=== PATIENT | female | born 1955 | race Caucasian/White ===

== ENCOUNTER 2016-08-23 11:09 | Emergency (ER) | payer BC ==
[2016-08-23] MEDS ORDERED: Diph,Pert(Acell),Tet Vac 0.5 ML SYR IM ONE (11:22)
--- NOTE | 2016-08-23 11:25 | Emergency Department Record ---
History of Present Illness - General Chief Complaint: Laceration(s) Stated Complaint: lac on r index finger Time Seen by Provider: 08/23/16 11:21 Source: Patient - History of Present Illness Initial Commments: Lac to RIF at proximal phalanx dorsal side just prior to arrival. Not UTD with tetanus. Extremity Location: Right: Hand Image Hand: 1 - 1 cm lac to dorasl RIF mid shaft of proximal phalanx. ROM intact, Full tendon function intact. Place: Home - Related Data Home Medications Medication Instructions Recorded Confirmed Last Taken Acetaminophen/Diphenhydramine 1 each PO QHS 08/23/16 08/23/16 1 Day Ago [Tylenol Pm Ex-Strength Caplet] ~08/22/16 Albuterol Sulfate [Proair Hfa] 1 - 2 puff IH .EVERY 4-6 HOURS PRN 08/23/1608/23 1 Day Ago ~08/22/16 Budesonide/Formoterol Fumarate 10.2 gm IH DAILY 08/23/16 08/23/16 1 Day Ago [Symbicort 160-4.5 Mcg Inhaler] ~08/22/16 Dextrin [Fiber] 350 gm PO DAILY 08/23/16 08/23/16 1 Day Ago ~08/22/16 Fluoxetine HCl [Prozac] 40 mg PO DAILY 08/23/16 08/23/16 1 Day Ago ~08/22/16 Fluticasone/Salmeterol [Advair 1 each IH BID 08/23/16 08/23/16 1 Day Ago 250-50 Diskus] ~08/22/16 Multivit with Calcium,Iron,Min 1 each PO DAILY 08/23/16 08/23/16 1 Day Ago [Multiple Vitamins For Women] ~08/22/16 Omeprazole [Prilosec] 20 mg PO DAILY 08/23/16 08/23/16 1 Day Ago ~08/22/16 Raloxifene HCl [Evista] 60 mg PO DAILY 08/23/16 08/23/16 1 Day Ago ~08/22/16 Allergies Allergy/AdvReac Type Severity Reaction Status Date / Time No Known Drug Allergies Allergy Verified 08/23/16 11:23 Review of Systems Reviewed: No additional complaints except as noted below Constitutional: Reports: As per HPI. Denies: Chills, Fever, Malaise, Night sweats, Weakness, Weight change Eyes: Reports: As per HPI. Denies: Eye discharge, Eye pain, Photophobia, Vision change ENT: Reports: As per HPI. Denies: Congestion, Dental pain, Ear pain, Epistaxis , Hearing loss, Throat pain Respiratory: Reports: As per HPI. Denies: Cough, Dyspnea, Hemoptysis, Stridor, Wheezes Cardiovascular: Reports: As per HPI. Denies: Arrhythmia, Chest pain, Dyspnea on exertion, Edema, Murmurs, Orthopnea, Palpitations, Paroxysmal nocturnal dyspnea, Rheumatic Fever, Syncope Endocrine: Reports: As per HPI. Denies: Fatigue, Heat or cold intolerance, Polydipsia, Polyuria Gastrointestinal: Reports: As per HPI. Denies: Abdominal pain, Constipation, Diarrhea, Hematemesis, Hematochezia, Melena, Nausea, Vomiting Genitourinary: Reports: As per HPI. Denies: Abnormal menses, Discharge, Dyspareunia, Dysuria, Frequency, Hematuria, Incontinence, Retention, Urgency Musculoskeletal: Reports: As per HPI. Denies: Arthralgia, Back pain, Gout, Joint swelling, Myalgia, Neck pain Skin: Reports: As per HPI. Denies: Bruising, Change in color, Change in hair/ nails, Lesions, Pruritus, Rash Neurological: Reports: As per HPI. Denies: Abnormal gait, Confusion, Headache, Numbness, Paresthesias, Seizure, Tingling, Tremors, Vertigo, Weakness Psychiatric: Reports: As per HPI. Denies: Anxiety, Auditory hallucinations, Depression, Homicidal thoughts, Suicidal thoughts, Visual hallucinations Hematological/Lymphatic: Reports: As per HPI. Denies: Anemia, Blood Clots, Easy bleeding, Easy bruising, Swollen glands Physical Exam - General General Appearance: Alert, Oriented x3, Cooperative, No acute distress - Head Head exam: Normal inspection - Eye Eye exam: Normal appearance, PERRL Pupils: Normal accommodation - ENT ENT exam: Normal exam, Mucous membranes moist, Normal external ear exam Ear exam: Normal external inspection. negative: External canal tenderness Nasal Exam: Normal inspection. negative: Discharge, Sinus tenderness Mouth exam: Normal external inspection Teeth exam: Normal inspection. negative: Dental caries Throat exam: Normal inspection. negative: Tonsillar erythema, Tonsillar exudate - Neck Neck exam: Normal inspection, Full ROM. negative: Tenderness - Respiratory Respiratory exam: negative: Respiratory distress - Cardiovascular Cardiovascular Exam: Regular rate, Normal rhythm - GI/Abdominal GI/Abdominal exam: Soft. negative: Tenderness - Rectal Rectal exam: Deferred - exam: Deferred - Extremities Extremities exam: Full ROM, Normal capillary refill, Other (1 cm lac to RIF dorsal aspect--see drawing; CMS intact). negative: Tenderness - Back Back exam: Reports: Normal inspection, Full ROM. Denies: Muscle spasm, Rash noted, Tenderness - Neurological Neurological exam: Alert, Normal gait, Oriented X3, Reflexes normal - Psychiatric Psychiatric exam: Normal affect, Normal mood - Skin Skin exam: Dry, Intact, Normal color, Warm Course - Reevaluation(s) Reevaluation #1: Went to room to perform suturing. Patient had just walked out of department without treatment. 08/23/16 11:56 Medical Decision Making - Management Options MDM Management: No Additional Work-up Planned Disposition Clinical Impression: Finger laceration Qualifiers: Encounter type: initial encounter Qualified Code(s): S61.219A - Laceration without foreign body of unspecified finger without damage to nail, initial encounter Disposition: Against Medical Advice Forms: Patient Portal Access
== END 2016-08-23 11:59 | disposition left against medical advice (07) ==
LOC: ER 11:09
DX: S61.210A Laceration without foreign body of right index finger without damage to nail, initial encounter (principal); F17.200 Nicotine dependence, unspecified, uncomplicated; W45.8XXA Other foreign body or object entering through skin, initial encounter
CPT/HCPCS: 99281